=== PATIENT | female | born 1945 | race Caucasian/White ===

== ENCOUNTER → 2016-10-03 | Outpatient (CLI) | payer MEDICARE, BC ==
[2016-10-03 08:55] LABS: ALT 35 U/L (9-52); AST 23 U/L (14-36); Alkaline Phosphatase 89 U/L (38-126); Anion Gap 11 mmol/L; Blood Urea Nitrogen 15 mg/dL (7-17); Calcium 9.7 mg/dL (8.4-10.2); Carbon Dioxide 28 mmol/L (22-30); Chloride 101 mmol/L (98-107); Cholesterol 161 mg/dL (<200); Glucose 215 mg/dL (74-99); HDL Cholesterol 41 mg/dL (40-60); Non-African American GFR(MDRD) >60 (>60 ml/min/1.73 sqM); Sodium 140 mmol/L (137-145); Total Bilirubin 0.8 mg/dL (0.2-1.3); Total Protein 7.8 g/dL (6.3-8.2); Triglycerides 158 mg/dL (<150)
== END | disposition home or self-care (01) ==
LOC: LABWHC1 07:57
PROVIDERS: ATTEND Internal Medicine
DX: E78.2 Mixed hyperlipidemia (principal); E03.9 Hypothyroidism, unspecified; E11.9 Type 2 diabetes mellitus without complications; E55.9 Vitamin D deficiency, unspecified
CPT/HCPCS: 36415; 80053; 80061; 82306; 84443

== ENCOUNTER → 2017-02-28 | Outpatient (CLI) | payer MEDICARE, BC ==
[2017-02-28 10:17] LABS: Hemoglobin A1C 9.2 % (4.2-6.1)
== END | disposition home or self-care (01) ==
LOC: LABWHC1 08:47
PROVIDERS: ATTEND Internal Medicine
DX: E11.9 Type 2 diabetes mellitus without complications (principal); E03.9 Hypothyroidism, unspecified
CPT/HCPCS: 36415; 83036; 84443

== ENCOUNTER → 2017-06-18 | Outpatient (CLI) | payer MEDICARE, BC ==
[2017-06-18 09:38] LABS: Blood Urea Nitrogen 14 mg/dL (7-17); Non-African American GFR(MDRD) >60 (>60 ml/min/1.73 sqM)
[2017-06-18 13:04] LABS: Hemoglobin A1C 8.5 % (4.2-6.1)
== END | disposition home or self-care (01) ==
LOC: LABWHC1 08:38
PROVIDERS: ATTEND Internal Medicine
DX: E03.9 Hypothyroidism, unspecified (principal); E11.9 Type 2 diabetes mellitus without complications
CPT/HCPCS: 36415; 82565; 83036; 84443; 84520

== ENCOUNTER → 2017-10-11 | Outpatient (CLI) | payer MEDICARE, BC ==
[2017-10-11 18:30] LABS: Hemoglobin A1C 9.3 % (4.0-6.0)
== END | disposition home or self-care (01) ==
LOC: LABWHC1 09:46
PROVIDERS: ATTEND Internal Medicine
DX: E11.9 Type 2 diabetes mellitus without complications (principal)
CPT/HCPCS: 36415; 83036

== ENCOUNTER 2020-11-21 11:08 | Inpatient (IN) | payer MEDICARE, BC ==
[2020-11-21] MEDS ORDERED: SODIUM CHLORIDE 0.9% 1,000 ML IV STA (11:27)
[2020-11-21 11:55] LABS: Basophils # (A) 0.1 k/uL (0-0.2); Basophils % (A) 0 %; Eosinophils # (A) 0.1 k/uL (0-0.7); Eosinophils % (A) 0 %; HGB 7.9 gm/dL (11.4-16.0); Hypochromasia Marked; Lymphocytes % (A) 13 %; MCH 24.5 pg (25.0-35.0); MCHC 28.4 g/dL (31.0-37.0); MCV 86.4 fL (80.0-100.0); Mean Platelet Volume 7.5; Monocytes # (A) 0.3 k/uL (0-1.0); Monocytes % (A) 2 %; Neutrophils # (A) 13.2 k/uL (1.3-7.7); Neutrophils % (A) 84 %; Platelet Count 496 k/uL (150-450); RBC 3.24 m/uL (3.80-5.40); RDW 14.7 % (11.5-15.5); WBC 15.7 k/uL (3.8-10.6)
--- NOTE | 2020-11-21 12:03 | ED ---
General Adult HPI - General Chief complaint: GI Bleed Stated complaint: GI Bleed, vomiting Time Seen by Provider: 11/21/20 11:26 Source: family Mode of arrival: wheelchair Limitations: physical limitation - History of Present Illness Initial comments: Dictation was produced using [employer] dictation software. please excuse any grammatical, word or spelling errors. This patient was cared for during a federal and state declared state of emergency secondary to Covid 19 Chief Complaint: 75-year-old female presents with hematemesis and melanotic stool History of Present Illness: She 75-year-old female she presents today with acute hematemesis and melanotic stool. Patient is accompanied by daughter who states that she looked fine last night. Patient has diffuse abdominal pain. She has no history of GI bleed. This morning she had multiple episodes of hematemesis and melanotic stool. Daughter reports that patient looks pale. She does not take any anticoagulation drugs. She has past medical history of thyroid disease, dyslipidemia and diabetes. The ROS documented in this emergency department record has been reviewed and c onfirmed by me. Those systems with pertinent positive or negative responses have been documented in the HPI. All other systems are other negative and/or noncontributory. PHYSICAL EXAM: General Impression: Alert and oriented x3, not in acute distress, pale HEENT: Normocephalic atraumatic, extra-ocular movements intact, pupils equal and reactive to light bilaterally, mucous membranes moist. Cardiovascular: Tachycardic Chest: Able to complete full sentences, no retractions, no tachypnea Abdomen: abdomen soft, non-tender, non-distended, no organomegaly Musculoskeletal: Pulses present and equal in all extremities, no peripheral edema Motor: no focal deficits noted Neurological: CN II-XII grossly intact, no focal motor or sensory deficits noted Skin: Intact with no visualized rashes Psych: Normal affect and mood ED course: 75 presents with acute GI bleed. She does appear to be pale at the bedside. Vital signs upon arrival shows heart rate of 100, blood pressure 97/49. Laboratory evaluation obtained. Leukocytosis of 15.7 likely secondary to stress. Hemoglobin is 7.9 down from 13.4 in 2015. We do not have any more updated labs for better assessment of patient's baseline hemoglobin. Coag panel is negative. Metabolic panel shows bicarb of 7 with an anion gap of 27. Glucose 539. Concerning for DKA. Patient started on IV fluids and started on DKA protocol. Stool occult blood is positive. Protonix Patient will be admitted to the intensive care unit. Case was discussed with Dr. Lyon. Dr. Good was also notified who is willing to accept patients care for admission. EKG interpretation: Ventricular rate 83, normal sinus rhythm, CA interval 140, QRS 82, QTc 447. No CA prolongation, no QTC prolongation, no ST or T-wave changes noted. EKG compared to [default value] showing no changes. Overall, this EKG is unremarkable - Related Data Allergies Allergy/AdvReac Type Severity Reaction Status Date / Time No Known Allergies Allergy Verified 11/21/20 11:23 Review of Systems ROS Statement: Those systems with pertinent positive or pertinent negative responses have been documented in the HPI. ROS Other: All systems not noted in ROS Statement are negative. Past Medical History Past Medical History: Diabetes Mellitus, Hyperlipidemia, Thyroid Disorder History of Any Multi-Drug Resistant Organisms: None Reported Past Surgical History: Orthopedic Surgery Additional Past Surgical History / Comment(s): rt hand Smoking Status: Never smoker Past Alcohol Use History: None Reported Past Drug Use History: None Reported General Exam Limitations: physical limitation Course Vital Signs 11/21/20 11/21/20 11:19 12:00 Temperature 96.8 F L Pulse Rate 100 90 Respiratory 16 18 Rate Blood Pressure 97/49 91/50 O2 Sat by Pulse 96 95 Oximetry Medical Decision Making - Lab Data Result diagrams: 11/21/20 11:42 11/21/20 11:42 Lab Results 11/21/20 11/21/20 11/21/20 Range/Units 11:42 11:42 11:42 WBC 15.7 H (3.8-10.6) k/uL RBC 3.24 L (3.80-5.40) m/uL Hgb 7.9 L (11.4-16.0) gm/dL Hct 28.0 L (34.0-46.0) % MCV 86.4 (80.0-100.0) fL MCH 24.5 L (25.0-35.0) pg MCHC 28.4 L (31.0-37.0) g/dL RDW 14.7 (11.5-15.5) % Plt Count 496 H (150-450) k/uL MPV 7.5 Neutrophils % 84 % Lymphocytes % 13 % Monocytes % 2 % Eosinophils % 0 % Basophils % 0 % Neutrophils # 13.2 H (1.3-7.7) k/uL Lymphocytes # 2.0 (1.0-4.8) k/uL Monocytes # 0.3 (0-1.0) k/uL Eosinophils # 0.1 (0-0.7) k/uL Basophils # 0.1 (0-0.2) k/uL Hypochromasia Marked PT 11.6 (9.0-12.0) sec INR 1.1 (<1.2) APTT 22.1 (22.0-30.0) sec Sodium 138 (137-145) mmol/L Potassium 5.3 H (3.5-5.1) mmol/L Chloride 104 (98-107) mmol/L Carbon Dioxide 7 L* (22-30) mmol/L Anion Gap 27 mmol/L BUN 36 H (7-17) mg/dL Creatinine 1.23 H (0.52-1.04) mg/dL Est GFR (CKD-EPI)AfAm 49 (>60 ml/min/1.73 sqM) Est GFR (CKD-EPI)NonAf 43 (>60 ml/min/1.73 sqM) Glucose 539 H* (74-99) mg/dL Calcium 9.5 (8.4-10.2) mg/dL Total Bilirubin 0.4 (0.2-1.3) mg/dL AST 27 (14-36) U/L ALT 28 (4-34) U/L Alkaline Phosphatase 60 (38-126) U/L Troponin I (0.000-0.034) ng/mL Total Protein 6.2 L (6.3-8.2) g/dL Albumin 3.4 L (3.5-5.0) g/dL Stool Occult Blood (Negative) Blood Type Blood Type Recheck Bld Type Recheck Status Antibody Screen Spec Expiration Date 11/21/20 11/21/20 11/21/20 Range/Units 11:42 11:42 12:00 WBC (3.8-10.6) k/uL RBC (3.80-5.40) m/uL Hgb (11.4-16.0) gm/dL Hct (34.0-46.0) % MCV (80.0-100.0) fL MCH (25.0-35.0) pg MCHC (31.0-37.0) g/dL RDW (11.5-15.5) % Plt Count (150-450) k/uL MPV Neutrophils % % Lymphocytes % % Monocytes % % Eosinophils % % Basophils % % Neutrophils # (1.3-7.7) k/uL Lymphocytes # (1.0-4.8) k/uL Monocytes # (0-1.0) k/uL Eosinophils # (0-0.7) k/uL Basophils # (0-0.2) k/uL Hypochromasia PT (9.0-12.0) sec INR (<1.2) APTT (22.0-30.0) sec Sodium (137-145) mmol/L Potassium (3.5-5.1) mmol/L Chloride (98-107) mmol/L Carbon Dioxide (22-30) mmol/L Anion Gap mmol/L BUN (7-17) mg/dL Creatinine (0.52-1.04) mg/dL Est GFR (CKD-EPI)AfAm (>60 ml/min/1.73 sqM) Est GFR (CKD-EPI)NonAf (>60 ml/min/1.73 sqM) Glucose (74-99) mg/dL Calcium (8.4-10.2) mg/dL Total Bilirubin (0.2-1.3) mg/dL AST (14-36) U/L ALT (4-34) U/L Alkaline Phosphatase (38-126) U/L Troponin I 0.021 (0.000-0.034) ng/mL Total Protein (6.3-8.2) g/dL Albumin (3.5-5.0) g/dL Stool Occult Blood Positive H (Negative) Blood Type O Positive Blood Type Recheck No Previous Record Bld Type Recheck Status CABO Indicated Antibody Screen NEGATIVE Spec Expiration Date 11/24/2020 - 2341 Critical Care Time Critical Care Time: Yes Total Critical Care Time: 33 Disposition Clinical Impression: DKA (diabetic ketoacidoses), Acute blood loss anemia, GI bleed Disposition: ADMITTED IP TO THIS [facility] Condition: Critical Referrals: Cristofer Vanegas MD [Primary Care Provider] - 1-2 days Decision Time: 12:57
[2020-11-21 12:07] LABS: Albumin 3.4 g/dL (3.5-5.0); Calcium 9.5 mg/dL (8.4-10.2); Potassium 5.3 mmol/L (3.5-5.1); Total Bilirubin 0.4 mg/dL (0.2-1.3); Total Protein 6.2 g/dL (6.3-8.2)
[2020-11-21 12:15] LABS: INR 1.1 (<1.2); Partial Thromboplastin Time 22.1 sec (22.0-30.0); Prothrombin Time 11.6 sec (9.0-12.0)
[2020-11-21] MEDS ORDERED: Potassium Replacement Protocol 1 EACH MISC MISCELLANE PRN (12:22)
[2020-11-21] MEDS ORDERED: Magnesium Replacement Protocol 1 EACH MISC MISCELLANE PRN (12:22)
[2020-11-21] MEDS ORDERED: INSULIN REGULAR BOLUS (FROM DRIP BAG) IV ONE (12:22)
[2020-11-21] MEDS ORDERED: PANTOPRAZOLE 40 MG/10 ML VIAL IVP ONE (12:46)
[2020-11-21] MEDS ORDERED: ACETAMINOPHEN TAB 325 MG TAB PO PRN (12:54)
[2020-11-21] MEDS ORDERED: NALOXONE 0.4 MG/ML 1 ML VIAL IV PRN (12:54)
[2020-11-21] MEDS ORDERED: INSULIN REGULAR 100 UNIT in SODIUM CHLORIDE 0.9% 100 ML IV SCH (13:00)
--- NOTE | 2020-11-21 14:00 | CT ---
EXAMINATION TYPE: CT abdomen pelvis w con DATE OF EXAM: 11/21/2020 COMPARISON: None HISTORY: Abd pain, GI Bleed CT DLP: 1673.6 mGycm Automated exposure control for dose reduction was used. TECHNIQUE: Helical acquisition of images from the lung bases through the pelvis have been completed. CONTRAST: Performed without Oral Contrast and with IV Contrast, patient injected with 80 mL of Isovue 300. FINDINGS: There is motion on exam, artifact LUNG BASES: No significant abnormality is appreciated. AORTA: No significant abnormality is appreciated. LIVER/GB: Low-attenuation in the liver is likely due to hepatic steatosis, liver is enlarged, gallbla dder not well seen, there is artifact present, there is likely a gallstone, gallbladder likely contra cted. PANCREAS: No significant abnormality is seen. SPLEEN: No significant abnormality is seen. ADRENALS: No significant abnormality is seen. KIDNEYS: Small cortical cysts associated with the kidneys, the lower pole the right kidney however th ere is a mixed attenuation focus measuring 2.4 cm seen better on the delayed images, axial image #37 REPRODUCTIVE ORGANS: Not seen BOWEL: No significant abnormality is seen. FREE AIR: No Free Air visible. ASCITES: None visible. PELVIC ADENOPATHY: None visualized. RETROPERITONEAL ADENOPATHY: No Retroperitoneal Adenopathy visible. URINARY BLADDER: No significant abnormality is seen. OSSEOUS STRUCTURES: No significant abnormality is seen. IMPRESSION: CHOLELITHIASIS, HEPATOMEGALY, HEPATIC STEATOSIS. DIFFICULT TO EXCLUDE SMALL RENAL CELL CARCINOMA ON T HE RIGHT AT THE LOWER POLE LEVEL
[2020-11-21 14:14] LABS: Glucose,Whole Blood 372 mg/dL (75-99)
[2020-11-21 14:29] LABS: Glucose,Whole Blood 353 mg/dL (75-99)
[2020-11-21] MEDS ORDERED: SODIUM CHLORIDE 0.9% 1,000 ML IV SCH (15:00)
[2020-11-21 15:11] LABS: Glucose,Whole Blood 351 mg/dL (75-99)
[2020-11-21 16:04] LABS: Glucose,Whole Blood 309 mg/dL (75-99)
[2020-11-21 17:00] LABS: Basophils % (A) 0 %; Eosinophils % (A) 0 %; HCT 21.6 % (34.0-46.0); Hypochromasia Marked; Lymphocytes # (A) 1.1 k/uL (1.0-4.8); Lymphocytes % (A) 8 %; MCH 25.1 pg (25.0-35.0); MCHC 31.3 g/dL (31.0-37.0); Mean Platelet Volume 7.6; Monocytes # (A) 0.8 k/uL (0-1.0); Monocytes % (A) 5 %; Neutrophils # (A) 12.6 k/uL (1.3-7.7); Neutrophils % (A) 87 %; Platelet Count 375 k/uL (150-450); RDW 14.8 % (11.5-15.5); WBC 14.6 k/uL (3.8-10.6)
[2020-11-21 17:04] LABS: Glucose,Whole Blood 200 mg/dL (75-99)
[2020-11-21] MEDS ORDERED: LACTATED RINGERS 1,000 ML IV SCH (17:08)
[2020-11-21 17:09] LABS: Potassium 4.5 mmol/L (3.5-5.1)
[2020-11-21 17:12] LABS: HGB 6.8 gm/dL (11.4-16.0)
[2020-11-21 17:13] LABS: MCV 80.1 fL (80.0-100.0)
[2020-11-21] MEDS ORDERED: D5-0.45% NACL WITH KCL 20MEQ/L 1,000 ML IV SCH ×2 (17:15→22:58)
--- NOTE | 2020-11-21 17:47 | P.CNPUL ---
History of Present Illness Consult date: 11/21/20 Requesting physician: Sarah Good Reason for consult: other (Upper GI bleeding) Chief complaint: Vomiting blood History of present illness: This is a 75-year-old female, known history of hypertension, type 2 diabetes, dyslipidemia, hypothyroidism, patient presented to the ER today with 1 day hi story of hematemesis, and melanotic stool. Patient also had some vague abdominal pain. Associated with vomiting blood. No previous history of GI bleeding. No previous history of gastric ulcer disease. No previous history of esophagitis. No previous history of alcohol related liver disease. Patient is not on any anticoagulation drugs but she does take baby aspirin daily and she takes Aleve few times per week for symptoms of aches and pains. At any rate patient was evaluated in the ER, her hemoglobin was noted to be 6.8, patient was admitted and I was asked to see her on consultation. GI was also consulted. In the meantime patient was placed on Protonix, and will continue to monitor her hemoglobin and hematocrit serially. Patient was also noted to have elevated blood sugar of 309, and she had mild metabolic acidosis with bicarb of 18 but normal anion gap. Patient was also noted to have a BUN of 48 creatinine of 0.95 Review of Systems Constitutional: Negative HEENT: Negative Pulmonary: Negative Cardiac: Negative GI: As noted in HPI mostly vomiting blood and noticing some black stools with diarrhea. Minimal vague abdominal pain. Genitourinary: Negative Musculoskeletal: Negative Hematologic: As noted in HPI. Endocrine: Negative except for history of diabetes and hypothyroidism both are under control. Neurologic: Negative Psychiatric: Negative Skin: Negative Past Medical History Past Medical History: Diabetes Mellitus, GERD/Reflux, Hyperlipidemia, Osteoarthritis (OA), Thyroid Disorder Additional Past Medical History / Comment(s): NIDDM type II, hypothyroid, occasional R knee pain, hypothyroid, urinary leakage. History of Any Multi-Drug Resistant Organisms: None Reported Past Surgical History: Breast Surgery, Hysterectomy, Orthopedic Surgery, Tubal Ligation Additional Past Surgical History / Comment(s): EGD, uvulectomy for benign mass, R breast benign bx, D&C, bilateral cataract removals, R middle finger surgery. Past Anesthesia/Blood Transfusion Reactions: No Reported Reaction Smoking Status: Never smoker - Past Family History Father Family Medical History: Cancer Additional Family Medical History / Comment(s): Pt cannot recall type of cancer. Mother Family Medical History: Diabetes Mellitus Medications and Allergies Home Medications Medication Instructions Recorded Confirmed Type Aspirin EC [Ecotrin Low Dose] 81 mg PO DAILY 11/21/20 11/21/20 History Atorvastatin [Lipitor] 10 mg PO DAILY 11/21/20 11/21/20 History Cholecalciferol [Vitamin D3 (25 25 mcg PO DAILY 11/21/20 11/21/20 History Mcg = 1000 Iu)] Levothyroxine Sodium [Synthroid] 200 mcg PO DAILY 11/21/20 11/21/20 History glyBURIDE/METFORMIN HCL 1 tab PO HS 11/21/20 11/21/20 History [glyBURIDE/METFORMIN HCL 5-500 mg] glyBURIDE/METFORMIN HCL 2 tab PO DAILY 11/21/20 11/21/20 History [glyBURIDE/METFORMIN HCL 5-500 mg] Allergies Allergy/AdvReac Type Severity Reaction Status Date / Time No Known Allergies Allergy Verified 11/21/20 13:34 Physical Exam Vitals: Vital Signs Temp Pulse Resp BP Pulse Ox 11/21/20 17:00 92 18 106/52 98 11/21/20 16:00 86 13 99/51 100 11/21/20 15:00 98.7 F 92 25 H 108/70 98 11/21/20 14:00 91 19 121/99 100 11/21/20 13:45 96 18 121/89 100 11/21/20 13:30 95 18 117/94 100 11/21/20 13:00 90 18 94/49 98 11/21/20 12:00 96.8 F L 90 18 91/50 95 11/21/20 11:19 100 16 97/49 96 Intake and Output 11/21/20 11/21/20 11/21/20 06:59 14:59 22:59 Intake Total 400 Output Total 205 Balance 195 Intake: IV 400 Sodium Chloride 0.9% 1, 400 000 ml @ 200 mls/hr IV . Q5H [facility] Rx#:[id number] Output: Urine 205 Other: Voiding Method Indwelling Catheter Weight 90.718 kg Physical Exam: Revealed 75-year-old female in no distress. Head: Atraumatic, normocephalic. HEENT:[Neck is supple.] [No neck masses.] [No thyromegaly.] [No JVD.] Chest: [Clear throughout, no crackles, no rhonchi, no wheezes.] Cardiac Exam: [Normal S1 and S2, no S3 gallop, no murmur.] Abdomen: [Soft, nontender, no megaly, no rebound, no guarding, normal bowel sounds.] Extremities: [No clubbing, no edema, no cyanosis.] Neurological Exam: [No focal neurologic deficit. Alert and oriented 3. Psychiatric: Normal mood affect and normal mental status examination. Skin: No rashes.] Results - Laboratory Findings CBC and BMP: 11/21/20 16:41 11/21/20 16:41 PT/INR, D-dimer PT 11.6 sec (9.0-12.0) 11/21/20 11:42 INR 1.1 (<1.2) 11/21/20 11:42 Abnormal lab findings: Abnormal Labs 11/21/20 11/21/20 11/21/20 11:42 11:42 12:00 WBC 15.7 H RBC 3.24 L Hgb 7.9 L Hct 28.0 L MCH 24.5 L MCHC 28.4 L Plt Count 496 H Neutrophils # 13.2 H Potassium 5.3 H Chloride Carbon Dioxide 7 L* BUN 36 H Creatinine 1.23 H Glucose 539 H* POC Glucose (mg/dL) Total Protein 6.2 L Albumin 3.4 L Stool Occult Blood Positive H 11/21/20 11/21/20 11/21/20 14:12 14:28 15:10 WBC RBC Hgb Hct MCH MCHC Plt Count Neutrophils # Potassium Chloride Carbon Dioxide BUN Creatinine Glucose POC Glucose (mg/dL) 372 H 353 H 351 H Total Protein Albumin Stool Occult Blood 11/21/20 11/21/20 11/21/20 16:02 16:41 16:41 WBC 14.6 H RBC 2.70 L Hgb 6.8 L* Hct 21.6 L MCH MCHC Plt Count Neutrophils # 12.6 H Potassium Chloride 111 H Carbon Dioxide 18 L BUN 48 H Creatinine Glucose 178 H POC Glucose (mg/dL) 309 H Total Protein Albumin Stool Occult Blood 11/21/20 17:02 WBC RBC Hgb Hct MCH MCHC Plt Count Neutrophils # Potassium Chloride Carbon Dioxide BUN Creatinine Glucose POC Glucose (mg/dL) 200 H Total Protein Albumin Stool Occult Blood - Diagnostic Findings Additional studies: CT of the abdomen and pelvis showed cholelithiasis, hepatomegaly, hepatic steatosis, and questionable lesion on the right kidney lower pole, radiologist raised the possibility of renal cell carcinoma Assessment and Plan Assessment: Impression: Acute upper GI bleeding most likely secondary to erosive gastritis or peptic ulcer disease. Acute blood loss anemia secondary to GI bleeding. Suspect Acute diabetic ketoacidosis. With significant anion gap on presentation. Significantly improved with hydration. Acute metabolic acidosis secondary to diabetic ketoacidosis History of benign essential hypertension. Type 2 diabetes. History of hypothyroidism. Abnormal CT of the abdomen and pelvis suggestive of possible renal cell carcinoma, needs to be evaluated on outpatient basis by urology. Recommendation: Continue IV fluids in the form of 0.9 normal saline. Continue insulin. Transfuse for hemoglobin below 7 with 1 unit of packed RBCs. GI to evaluate the patient and possibly consider EGD. Protonix empirically 40 mg IV push twice a day. Serial monitoring of hemoglobin and hematocrit every 4 hours. Avoid any nonsteroidal anti-inflammatory drugs. Avoid any anticoagulants. Will monitor in the ICU for the next 24 hours, and we'll reassess in a.m. We'll continue to follow. Time with Patient: Greater than 30
[2020-11-21 18:11] LABS: Glucose,Whole Blood 160 mg/dL (75-99)
[2020-11-21 19:07] LABS: Glucose,Whole Blood 121 mg/dL (75-99)
--- NOTE | 2020-11-21 19:32 | P.HPIM ---
History of Present Illness H&P Date: 11/21/20 Cheyenne Crump, is a 75-year-old female who presented to [facility] emergency room with a chief complaint of vomiting up coffee-ground material and having abdominal pain. She was evaluated in the emergency room her vital examination on presentation revealed a temperature of 96.8 pulse 90 respiration 18 blood pressure 91/50 pulse ox 95% on 2 L nasal cannula white blood count on presentation 15.7 hemoglobin 7.9 lately it count 496 sodium 138 potassium 5.3 CO2 was 7 BUN 36 creatinine 1.23 glucose level 539 stools Hemoccult was positive patient was admitted to intensive care unit computed tomography scan of the abdomen and pelvis was done and revealed evidence of cholelithiasis, hepatomegaly, and possible right small renal lesion on the lower lobe that might indicate renal cell carcinoma per Radiology. Patient was admitted to intensive care unit, critical care consultation and gastroenterology consultation were requested. Past medical history is significant for diabetes mellitus, [id number], hyperlipidemia, hypothyroidism, osteoarthritis, gastroesophageal reflux disease, patient denies any previous history of gastric ulcer or GI bleed in the past. No history of liver cirrhosis. On review of systems patient was seen in the ICU at this time she had signif icant improvement she received IV fluid, there is no fever or chills no headache or dizziness no chest pain no shortness of breath no cough no nausea or vomiting no abdominal pain no diarrhea no burning with urination no frequency or urgency and no hematuria. Past Medical History Past Medical History: Diabetes Mellitus, GERD/Reflux, Hyperlipidemia, Osteoarth ritis (OA), Thyroid Disorder Additional Past Medical History / Comment(s): NIDDM type II, hypothyroid, occasional R knee pain, hypothyroid, urinary leakage. History of Any Multi-Drug Resistant Organisms: None Reported Past Surgical History: Breast Surgery, Hysterectomy, Orthopedic Surgery, Tubal Ligation Additional Past Surgical History / Comment(s): EGD, uvulectomy for benign mass, R breast benign bx, D&C, bilateral cataract removals, R middle finger surgery. Past Anesthesia/Blood Transfusion Reactions: No Reported Reaction Smoking Status: Never smoker - Past Family History Father Family Medical History: Cancer Additional Family Medical History / Comment(s): Pt cannot recall type of cancer. Mother Family Medical History: Diabetes Mellitus Medications and Allergies Home Medications Medication Instructions Recorded Confirmed Type Aspirin EC [Ecotrin Low Dose] 81 mg PO DAILY 11/21/20 11/21/20 History Atorvastatin [Lipitor] 10 mg PO DAILY 11/21/20 11/21/20 History Cholecalciferol [Vitamin D3 (25 25 mcg PO DAILY 11/21/20 11/21/20 History Mcg = 1000 Iu)] Levothyroxine Sodium [Synthroid] 200 mcg PO DAILY 11/21/20 11/21/20 History glyBURIDE/METFORMIN HCL 1 tab PO HS 11/21/20 11/21/20 History [glyBURIDE/METFORMIN HCL 5-500 mg] glyBURIDE/METFORMIN HCL 2 tab PO DAILY 11/21/20 11/21/20 History [glyBURIDE/METFORMIN HCL 5-500 mg] Allergies Allergy/AdvReac Type Severity Reaction Status Date / Time No Known Allergies Allergy Verified 11/21/20 13:34 Physical Exam Vitals: Vital Signs Temp Pulse Resp BP Pulse Ox 11/21/20 19:00 90 17 103/53 97 11/21/20 18:55 98.2 F 85 14 98/55 99 11/21/20 18:45 99.7 F H 88 16 111/55 98 11/21/20 18:00 90 18 110/48 100 11/21/20 17:00 92 18 106/52 98 11/21/20 16:00 86 13 99/51 100 11/21/20 15:00 98.7 F 92 25 H 108/70 98 11/21/20 14:00 91 19 121/99 100 11/21/20 13:45 96 18 121/89 100 11/21/20 13:30 95 18 117/94 100 11/21/20 13:00 90 18 94/49 98 11/21/20 12:00 96.8 F L 90 18 91/50 95 11/21/20 11:19 100 16 97/49 96 Intake and Output 11/21/20 11/21/20 11/21/20 06:59 14:59 22:59 Intake Total 757.88 Output Total 325 Balance 432.88 Intake: IV 700 D5-0.45% NaCl with KCl 300 20Meq/l 1,000 ml @ 150 mls/hr IV .Q6H40M [facility] Rx# :[id number] Sodium Chloride 0.9% 1, 400 000 ml @ 200 mls/hr IV . Q5H [facility] Rx#:[id number] Intake, IV Titration 57.88 Amount Insulin Regular 100 unit 57.88 In Sodium Chloride 0.9% 100 ml @ 0.1 UNITS/KG/HR 9.163 mls/hr IV .Q11H2M [facility] Rx#:[id number] Blood Product 0 Rc As-1 Unit 0 [id number] Output: Urine 325 Other: Voiding Method Indwelling Catheter Weight 90.718 kg In general patient is alert and oriented 3 in no apparent distress HEENT head normocephalic and atraumatic Neck is supple no JVD no goiter no lymphadenopathy Chest exam reveals a few scattered crackles no wheezing Cardiac exam reveals regular heart sounds S1 and S2 no gallops no murmurs Abdomen is soft nontender no organomegaly with normal bowel sounds Extremity exam reveals no edema no cyanosis or clubbing Neurological examination reveals no gross focal deficit Results CBC & Chem 7: 11/21/20 16:41 11/21/20 16:41 Labs: Abnormal Lab Results - Last 24 Hours (Table) 11/21/20 11/21/20 11/21/20 Range/Units 11:42 11:42 11:42 WBC 15.7 H (3.8-10.6) k/uL RBC 3.24 L (3.80-5.40) m/uL Hgb 7.9 L (11.4-16.0) gm/dL Hct 28.0 L (34.0-46.0) % MCH 24.5 L (25.0-35.0) pg MCHC 28.4 L (31.0-37.0) g/dL Plt Count 496 H (150-450) k/uL Neutrophils # 13.2 H (1.3-7.7) k/uL Potassium 5.3 H (3.5-5.1) mmol/L Chloride (98-107) mmol/L Carbon Dioxide 7 L* (22-30) mmol/L BUN 36 H (7-17) mg/dL Creatinine 1.23 H (0.52-1.04) mg/dL Glucose 539 H* (74-99) mg/dL POC Glucose (mg/dL) (75-99) mg/dL Total Protein 6.2 L (6.3-8.2) g/dL Albumin 3.4 L (3.5-5.0) g/dL Stool Occult Blood (Negative) Crossmatch See Detail 11/21/20 11/21/20 11/21/20 Range/Units 12:00 14:12 14:28 WBC (3.8-10.6) k/uL RBC (3.80-5.40) m/uL Hgb (11.4-16.0) gm/dL Hct (34.0-46.0) % MCH (25.0-35.0) pg MCHC (31.0-37.0) g/dL Plt Count (150-450) k/uL Neutrophils # (1.3-7.7) k/uL Potassium (3.5-5.1) mmol/L Chloride (98-107) mmol/L Carbon Dioxide (22-30) mmol/L BUN (7-17) mg/dL Creatinine (0.52-1.04) mg/dL Glucose (74-99) mg/dL POC Glucose (mg/dL) 372 H 353 H (75-99) mg/dL Total Protein (6.3-8.2) g/dL Albumin (3.5-5.0) g/dL Stool Occult Blood Positive H (Negative) Crossmatch 11/21/20 11/21/20 11/21/20 Range/Units 15:10 16:02 16:41 WBC 14.6 H (3.8-10.6) k/uL RBC 2.70 L (3.80-5.40) m/uL Hgb 6.8 L* (11.4-16.0) gm/dL Hct 21.6 L (34.0-46.0) % MCH (25.0-35.0) pg MCHC (31.0-37.0) g/dL Plt Count (150-450) k/uL Neutrophils # 12.6 H (1.3-7.7) k/uL Potassium (3.5-5.1) mmol/L Chloride (98-107) mmol/L Carbon Dioxide (22-30) mmol/L BUN (7-17) mg/dL Creatinine (0.52-1.04) mg/dL Glucose (74-99) mg/dL POC Glucose (mg/dL) 351 H 309 H (75-99) mg/dL Total Protein (6.3-8.2) g/dL Albumin (3.5-5.0) g/dL Stool Occult Blood (Negative) Crossmatch 11/21/20 11/21/20 11/21/20 Range/Units 16:41 17:02 18:10 WBC (3.8-10.6) k/uL RBC (3.80-5.40) m/uL Hgb (11.4-16.0) gm/dL Hct (34.0-46.0) % MCH (25.0-35.0) pg MCHC (31.0-37.0) g/dL Plt Count (150-450) k/uL Neutrophils # (1.3-7.7) k/uL Potassium (3.5-5.1) mmol/L Chloride 111 H (98-107) mmol/L Carbon Dioxide 18 L (22-30) mmol/L BUN 48 H (7-17) mg/dL Creatinine (0.52-1.04) mg/dL Glucose 178 H (74-99) mg/dL POC Glucose (mg/dL) 200 H 160 H (75-99) mg/dL Total Protein (6.3-8.2) g/dL Albumin (3.5-5.0) g/dL Stool Occult Blood (Negative) Crossmatch 11/21/20 Range/Units 19:05 WBC (3.8-10.6) k/uL RBC (3.80-5.40) m/uL Hgb (11.4-16.0) gm/dL Hct (34.0-46.0) % MCH (25.0-35.0) pg MCHC (31.0-37.0) g/dL Plt Count (150-450) k/uL Neutrophils # (1.3-7.7) k/uL Potassium (3.5-5.1) mmol/L Chloride (98-107) mmol/L Carbon Dioxide (22-30) mmol/L BUN (7-17) mg/dL Creatinine (0.52-1.04) mg/dL Glucose (74-99) mg/dL POC Glucose (mg/dL) 121 H (75-99) mg/dL Total Protein (6.3-8.2) g/dL Albumin (3.5-5.0) g/dL Stool Occult Blood (Negative) Crossmatch Thrombosis Risk Factor Assmnt - Choose All That Apply Any of the Below Risk Factors Present?: Yes Each Factor Represents 1 point: Obesity (BMI >25) Other Risk Factors: Yes Each Risk Factor Represents 3 Points: Age 75 years or older Other congenital or acquired thrombophilia - If yes, enter type in comment: No Thrombosis Risk Factor Assessment Total Risk Factor Score: 4 Thrombosis Risk Factor Assessment Level: Moderate Risk Assessment and Plan Plan: Acute metabolic acidosis Possible acute ketoacidosis, although patient has a known history of diabetes mellitus type 2, will check ketones, will check hemoglobin A1c Underlying history of hypertension Underlying history of hyperlipidemia Underlying history of hypothyroidism Right kidney lesion in the lower pole possibly representing renal cell carcinoma per radiology patient need to be referred to urology as outpatient for further investigation At this time patient is admitted to ICU she is maintained on IV fluid and IV insulin Gastroenterology consultation was requested Critical care consultation is requested Patient is maintained on IV Protonix Will follow closely
[2020-11-21 19:46] LABS: % Iron Saturation 27.81 (12.00-45.00)
[2020-11-21 19:54] LABS: Glucose,Whole Blood 87 mg/dL (75-99)
[2020-11-21 19:56] LABS: Folate, Serum 8.5 ng/mL
[2020-11-21 20:13] LABS: Ferritin 11.3 ng/mL (10.0-291.0)
[2020-11-21] MEDS: PANTOPRAZOLE 40 MG/10 ML VIAL IVP SCH (20:37)
[2020-11-21 20:56] LABS: Glucose,Whole Blood 100 mg/dL (75-99)
[2020-11-21] MEDS ORDERED: INSULIN NPH 300 UNIT/3 ML VIAL SQ ONE (21:42)
[2020-11-22 02:25] LABS: Phosphorus 3.5 mg/dL (2.5-4.5); Potassium 4.6 mmol/L (3.5-5.1)
[2020-11-22 03:58] LABS: HCT 25.4 % (34.0-46.0); Hypochromasia Slight; MCH 26.9 pg (25.0-35.0); MCHC 32.7 g/dL (31.0-37.0); MCV 82.1 fL (80.0-100.0); Mean Platelet Volume 7.6; Platelet Count 288 k/uL (150-450); Poikilocytosis Slight; RDW 15.7 % (11.5-15.5); WBC 12.5 k/uL (3.8-10.6)
[2020-11-22 04:04] LABS: HGB 8.3 gm/dL (11.4-16.0)
[2020-11-22 04:18] LABS: Calcium 8.5 mg/dL (8.4-10.2); Potassium 4.5 mmol/L (3.5-5.1)
[2020-11-22 06:10] LABS: Glucose,Whole Blood 160 mg/dL (75-99)
[2020-11-22] MEDS: INSULIN ASPART (NovoLOG) 100 UNIT/ML VIAL SQ SCH ×4 (06:38→19:48)
[2020-11-22] MEDS ORDERED: INSULIN ASPART (NovoLOG) 100 UNIT/ML VIAL SQ SCH (07:30)
[2020-11-22] MEDS: PANTOPRAZOLE 40 MG/10 ML VIAL IVP SCH ×2 (08:00→19:49)
[2020-11-22 10:51] VITALS: BMI 37.3
[2020-11-22 12:02] LABS: Appearance,Urine Clear (Clear); Bilirubin,Urine Negative (Negative); Blood,Urine Negative (Negative); Color,Urine Light Yellow; Glucose,Urine (UA) 3+ (Negative); Ketones,Urine Negative (Negative); Leukocyte Esterase,Urine Negative (Negative); Nitrite,Urine Negative (Negative); PH, Urine 5.5 (5.0-8.0); Protein,Urine Negative (Negative); Specific Gravity,Urine 1.014 (1.001-1.035); Urobilinogen,Urine <2.0 mg/dL (<2.0)
[2020-11-22 12:05] LABS: Glucose,Whole Blood 190 mg/dL (75-99)
[2020-11-22] MEDS ORDERED: PROPOFOL 10 MG/ML 20 ML VIAL IV ONE (12:39)
[2020-11-22] MEDS ORDERED: LIDOCAINE 1% INJ 10MG/ML (20 ML MDV) ONE (12:39)
[2020-11-22] MEDS ORDERED: IV FLUID CONTINUATION 1,000 ML IV ONE (12:43)
--- NOTE | 2020-11-22 13:08 | P.CONS ---
History of Present Illness - Reason for Consult Consult date: 11/21/20 GI bleed Requesting physician: Cristofer Vanegas - Chief Complaint GI bleed - History of Present Illness 75-year-old female with multiple medical comorbidities including dyslipidemia, diabetes mellitus, and thyroid disease who presented to the hospital with compl aints of coffee-ground emesis and dark colored bowel movements. The patient reports symptoms of dark coffee-ground emesis. She also reports passing dark clots per rectum 2. Patient takes Aleve daily at home. She previously had an EGD in 2007 after uvula surgery. No prior colonoscopy. She denies any blood thinner use. Hemoglobin on presentation 7.9 with platelet count 496,000 and a WBC of 15.7. Stool testing was positive for occult blood. Computed tomography scan of the abdomen significant for hepatomegaly, cholelithiasis and possible renal lesion. Patient denies any prior history of peptic ulcer disease. No abdominal pain reported. Review of Systems REVIEW OF SYSTEMS: CONSTITUTIONAL: Denies any fevers, chills, weight change or fatigue. CARDIOVASCULAR: Denies any chest pain, palpitations high or low blood pressures RESPIRATORY: Denies any shortness of breath, hemoptysis or cough. GENITOURINARY: No dysuria or hematuria. MUSCULOSKELETAL: No weakness reported. SKIN: Denies any new rashes or lesions, jaundice or pallor. PSYCHIATRIC: Denies any depression or anxiety. NEUROLOGY: Denies headache, denies any new focal deficits. EARS/NOSE/THROAT: No recent hearing change but patient is hard of hearing a baseline no recent congestion, nasal discharge or sore throat. EYES: No pain in eyes, discharge or change in vision. GASTROINTESTINAL: As per HPI. Past Medical History Past Medical History: Diabetes Mellitus, Hyperlipidemia, Thyroid Disorder History of Any Multi-Drug Resistant Organisms: None Reported Past Surgical History: Orthopedic Surgery Additional Past Surgical History / Comment(s): rt hand Smoking Status: Never smoker Past Alcohol Use History: None Reported Past Drug Use History: None Reported - Past Family History Father Family Medical History: Cancer Additional Family Medical History / Comment(s): Pt cannot recall type of cancer. Mother Family Medical History: Diabetes Mellitus Medications and Allergies Home Medications Medication Instructions Recorded Confirmed Type Aspirin EC [Ecotrin Low Dose] 81 mg PO DAILY 11/21/20 11/21/20 History Atorvastatin [Lipitor] 10 mg PO DAILY 11/21/20 11/21/20 History Cholecalciferol [Vitamin D3 (25 25 mcg PO DAILY 11/21/20 11/21/20 History Mcg = 1000 Iu)] Levothyroxine Sodium [Synthroid] 200 mcg PO DAILY 11/21/20 11/21/20 History glyBURIDE/METFORMIN HCL 1 tab PO HS 11/21/20 11/21/20 History [glyBURIDE/METFORMIN HCL 5-500 mg] glyBURIDE/METFORMIN HCL 2 tab PO DAILY 11/21/20 11/21/20 History [glyBURIDE/METFORMIN HCL 5-500 mg] Allergies Allergy/AdvReac Type Severity Reaction Status Date / Time No Known Allergies Allergy Verified 11/21/20 13:34 Physical Exam Vitals: Vital Signs Temp Pulse Resp BP Pulse Ox 11/21/20 13:45 96 18 121/89 100 11/21/20 13:30 95 18 117/94 100 11/21/20 13:00 90 18 94/49 98 11/21/20 12:00 96.8 F L 90 18 91/50 95 11/21/20 11:19 100 16 97/49 96 Intake and Output 11/20/20 11/21/20 11/21/20 22:59 06:59 14:59 Other: Weight 90.718 kg On physical examination, patient appears comfortable in no apparent distress. HEAD: Normocephalic, atraumatic. EYES: No scleral icterus. No conjunctival injection. MOUTH: No lesions, tongue midline. NECK: Trachea midline, no gross abnormalities. CHEST: Decreased air entry in all lung gore. HEART: S1-S2 appreciated. ABDOMEN: Soft, obese and nontender to palpation. Bowel sounds are positive. No organomegaly. No guarding or rigidity. EXTREMITIES: No pedal edema. SKIN: No rashes, no jaundice. NEUROLOGIC: Alert and oriented x3. No focal deficits. Results CBC & Chem 7: 11/22/20 03:15 11/22/20 03:15 Labs: Abnormal Lab Results - Last 24 Hours (Table) 11/21/20 11/21/20 11/21/20 Range/Units 11:42 11:42 12:00 WBC 15.7 H (3.8-10.6) k/uL RBC 3.24 L (3.80-5.40) m/uL Hgb 7.9 L (11.4-16.0) gm/dL Hct 28.0 L (34.0-46.0) % MCH 24.5 L (25.0-35.0) pg MCHC 28.4 L (31.0-37.0) g/dL Plt Count 496 H (150-450) k/uL Neutrophils # 13.2 H (1.3-7.7) k/uL Potassium 5.3 H (3.5-5.1) mmol/L Carbon Dioxide 7 L* (22-30) mmol/L BUN 36 H (7-17) mg/dL Creatinine 1.23 H (0.52-1.04) mg/dL Glucose 539 H* (74-99) mg/dL Total Protein 6.2 L (6.3-8.2) g/dL Albumin 3.4 L (3.5-5.0) g/dL Stool Occult Blood Positive H (Negative) CT scan - abdomen: report reviewed (Computed tomography scan of the abdomen with findings of cholelithiasis, hepatomegaly/steatosis and possible renal lesion.) Assessment and Plan (1) GI bleed Narrative/Plan: 75-year-old female with multiple medical comorbidities presenting with coffee- ground emesis and blood/clots per rectum. No history of GI bleed. No prior colonoscopy but she did have a EGD after uvula surgery in 2007. She does use NSAID therapy regularly taking Aleve. No abdominal pain reported. Patient found to have an acute fall in hemoglobin of 7.6 on presentation with a positive stool testing for occult blood. Unclear etiology, differential includes gastritis, esophagitis, peptic ulcer disease, AVM, Dieulafoy lesion or other etiology. Current Visit: Yes Status: Acute Code(s): K92.2 - GASTROINTESTINAL HEMORRHAGE, UNSPECIFIED SNOMED Code(s): 30082415 (2) Acute blood loss anemia Current Visit: Yes Status: Acute Code(s): D62 - ACUTE POSTHEMORRHAGIC ANEMIA SNOMED Code(s): 770936255 Plan: Supportive care Nothing by mouth Continue to monitor hemoglobin and hematocrit and transfuse as needed Avoid NSAID therapy Protonix 40 mg IV twice daily Plan for EGD tomorrow for further evaluation Hold any anticoagulation therapy at this time Further recommendations pending findings from EGD Thank you for allowing us to participate in the care of the patient
--- NOTE | 2020-11-22 13:11 | P.PCN ---
Date of Procedure: 11/22/20 Description of Procedure: BRIEF HISTORY: 75-year-old female with multiple medical comorbidities including dyslipidemia, diabetes mellitus, and thyroid disease who presented to the hospital with complaints of coffee-ground emesis and dark colored bowel movements. The patient reports symptoms of dark coffee-ground emesis. She also reports passing dark clots per rectum 2. Patient takes Aleve daily at home. She previously had an EGD in 2007 after uvula surgery. No prior colonoscopy. She denies any blood thinner use. Hemoglobin on presentation 7.9 with platelet count 496,000 and a WBC of 15.7. Stool testing was positive for occult blood. Computed tomography scan of the abdomen significant for hepatomegaly, cholelithiasis and possible renal lesion. Patient denies any prior history of peptic ulcer disease. No abdominal pain reported. PROCEDURE PERFORMED: Esophagogastroduodenoscopy with biopsy. PREOPERATIVE DIAGNOSIS: GI bleed, anemia of acute blood loss. ESTIMATED BLOOD LOSS: Minimal. IV sedation per anesthesia. PROCEDURE: After informed consent was obtained, the patient was brought into the endoscopy unit. IV sedation was administered by Anesthesia under continuous monitoring. Initially the Olympus GIF-190 video endoscope was inserted into the mouth. Esophagus intubated without any difficulty. It was gradually advanced into the stomach and duodenum and carefully examined. The bulb and the second part of the duodenum appeared normal, with biopsies taken. The scope at this time was withdrawn to the stomach, adequately insufflated with air, and upon careful examination, mucosa of the antrum, body, cardia and the fundus were significant for 3 cratered ulcers measuring 4 mm, 4 mm, and 11 mm in size located in the antrum of the stomach without any high risk stigmata for bleeding with biopsies taken at the ulcer edge. There is also moderate erythema and superficial erosions suggestive of moderate gastritis. The scope was then withdrawn into the esophagus. The GE junction was located at 36 cm from the incisors, with a small 1 cm hiatal hernia noted. The esophagus appeared normal. There were no erosions or ulcerations seen and the patient tolerated the procedure well. IMPRESSION: 1. 3 cratered nonbleeding ulcers in the antrum of the stomach without high risk stigmata for bleeding. 2. Moderate gastritis. 3. Biopsies of the duodenum, and the antral ulcers . RECOMMENDATIONS: The findings of this examination were discussed with the patient and her family. Okay to resume liquid diet today and advance as tolerated tomorrow. Continue Protonix 40 mg twice daily. Avoid NSAID use as the patient was previously on Aleve. Okay for transferred to stepdown unit with continued close monitoring of labs and clinically.
--- NOTE | 2020-11-22 14:34 | P.PN ---
Subjective Progress Note Date: 11/22/20 Principal diagnosis: Acute GI bleeding This is a 75-year-old female, known history of hypertension, type 2 diabetes, dyslipidemia, hypothyroidism, patient presented to the ER today with 1 day history of hematemesis, and melanotic stool. Patient also had some vague abdominal pain. Associated with vomiting blood. No previous history of GI bleeding. No previous history of gastric ulcer disease. No previous history of esophagitis. No previous history of alcohol related liver disease. Patient is not on any anticoagulation drugs but she does take baby aspirin daily and she takes Aleve few times per week for symptoms of aches and pains. At any rate patient was evaluated in the ER, her hemoglobin was noted to be 6.8, patient was admitted and I was asked to see her on consultation. GI was also consulted. In the meantime patient was placed on Protonix, and will continue to monitor her hemoglobin and hematocrit serially. Patient was also noted to have elevated blood sugar of 309, and she had mild metabolic acidosis with bicarb of 18 but normal anion gap. Patient was also noted to have a BUN of 48 creatinine of 0.95 Patient was reevaluated today on 11/22/2020, received a total of 2 units of packed RBCs since admission to the ICU. Hemoglobin is holding at 8.3 today. Patient underwent EGD today, and she was noted to have 3 nonbleeding ulcers in the antrum of the stomach without high risk stigmata for bleeding. There was also evidence of moderate gastritis. Hence the cup setter lockstitch recommended that we continue Protonix, and avoid nonsteroidal anti-inflammatory drugs. Patient was instructed not to use Aleve anymore. And considering the findings, the patient could be transferred to a regular medical floor rather than staying in the ICU. Clinically no active bleeding noted. And her hemoglobin seems to be relatively stable. Objective - Vital Signs Vital signs: Vital Signs Temp 99.0 F 11/22/20 12:00 Pulse 87 11/22/20 12:00 Resp 17 11/22/20 12:00 BP 165/71 11/22/20 12:00 Pulse Ox 95 11/22/20 12:00 Intake & Output 11/21/20 11/22/20 11/22/20 18:59 06:59 18:59 Intake Total 550 1781.72 350 Output Total 275 890 775 Balance 275 891.72 -425 Weight 90.718 kg 89.6 kg 89.6 kg Intake: IV 550 1100 350 D5-0.45% NaCl with KCl 150 750 20Meq/l 1,000 ml @ 150 mls/hr IV .Q6H40M PEE Rx# :[id number] D5-0.45% NaCl with KCl 350 300 20Meq/l 1,000 ml @ 50 mls /hr IV .Q20H PEE Rx#: [id number] Sodium Chloride 0.9% 1, 400 000 ml @ 200 mls/hr IV . Q5H PEE Rx#:[id number] Intake, IV Titration 61.72 Amount Insulin Regular 100 unit 61.72 In Sodium Chloride 0.9% 100 ml @ 0.1 UNITS/KG/HR 9.163 mls/hr IV .Q11H2M PEE Rx#:[id number] Blood Product 0 620 Rc As-1 Unit 0 310 [id number] Rc As-1 Unit 310 [id number] Output: Urine 275 890 775 Other: Voiding Method Indwelling Catheter Indwelling Catheter Indwelling Catheter - Exam Physical Exam: Revealed 75-year-old female in no distress. Head: Atraumatic, normocephalic. HEENT:[Neck is supple.] [No neck masses.] [No thyromegaly.] [No JVD.] Chest: [Clear throughout, no crackles, no rhonchi, no wheezes.] Cardiac Exam: [Normal S1 and S2, no S3 gallop, no murmur.] Abdomen: [Soft, nontender, no megaly, no rebound, no guarding, normal bowel sounds.] Extremities: [No clubbing, no edema, no cyanosis.] Neurological Exam: [No focal neurologic deficit. Alert and oriented 3. Psychiatric: Normal mood affect and normal mental status examination. Skin: No rashes.] - Labs CBC & Chem 7: 11/22/20 03:15 11/22/20 03:15 Labs: Abnormal Lab Results - Last 24 Hours (Table) 11/21/20 11/21/20 11/21/20 Range/Units 11:42 14:28 15:10 WBC (3.8-10.6) k/uL RBC (3.80-5.40) m/uL Hgb (11.4-16.0) gm/dL Hct (34.0-46.0) % RDW (11.5-15.5) % Neutrophils # (1.3-7.7) k/uL Sodium (137-145) mmol/L Chloride (98-107) mmol/L Carbon Dioxide (22-30) mmol/L BUN (7-17) mg/dL Glucose (74-99) mg/dL POC Glucose (mg/dL) 353 H 351 H (75-99) mg/dL Urine Glucose (UA) (Negative) Crossmatch See Detail 11/21/20 11/21/20 11/21/20 Range/Units 16:02 16:41 16:41 WBC 14.6 H (3.8-10.6) k/uL RBC 2.70 L (3.80-5.40) m/uL Hgb 6.8 L* (11.4-16.0) gm/dL Hct 21.6 L (34.0-46.0) % RDW (11.5-15.5) % Neutrophils # 12.6 H (1.3-7.7) k/uL Sodium (137-145) mmol/L Chloride 111 H (98-107) mmol/L Carbon Dioxide 18 L (22-30) mmol/L BUN 48 H (7-17) mg/dL Glucose 178 H (74-99) mg/dL POC Glucose (mg/dL) 309 H (75-99) mg/dL Urine Glucose (UA) (Negative) Crossmatch 11/21/20 11/21/20 11/21/20 Range/Units 17:02 18:10 19:05 WBC (3.8-10.6) k/uL RBC (3.80-5.40) m/uL Hgb (11.4-16.0) gm/dL Hct (34.0-46.0) % RDW (11.5-15.5) % Neutrophils # (1.3-7.7) k/uL Sodium (137-145) mmol/L Chloride (98-107) mmol/L Carbon Dioxide (22-30) mmol/L BUN (7-17) mg/dL Glucose (74-99) mg/dL POC Glucose (mg/dL) 200 H 160 H 121 H (75-99) mg/dL Urine Glucose (UA) (Negative) Crossmatch 11/21/20 11/22/20 11/22/20 Range/Units 20:54 01:22 03:15 WBC 12.5 H (3.8-10.6) k/uL RBC 3.10 L (3.80-5.40) m/uL Hgb 8.3 L D (11.4-16.0) gm/dL Hct 25.4 L (34.0-46.0) % RDW 15.7 H (11.5-15.5) % Neutrophils # (1.3-7.7) k/uL Sodium 136 L (137-145) mmol/L Chloride 113 H (98-107) mmol/L Carbon Dioxide 17 L (22-30) mmol/L BUN 43 H (7-17) mg/dL Glucose 150 H (74-99) mg/dL POC Glucose (mg/dL) 100 H (75-99) mg/dL Urine Glucose (UA) (Negative) Crossmatch 11/22/20 11/22/20 11/22/20 Range/Units 03:15 06:09 11:30 WBC (3.8-10.6) k/uL RBC (3.80-5.40) m/uL Hgb (11.4-16.0) gm/dL Hct (34.0-46.0) % RDW (11.5-15.5) % Neutrophils # (1.3-7.7) k/uL Sodium (137-145) mmol/L Chloride 112 H (98-107) mmol/L Carbon Dioxide 19 L (22-30) mmol/L BUN 40 H (7-17) mg/dL Glucose 142 H (74-99) mg/dL POC Glucose (mg/dL) 160 H (75-99) mg/dL Urine Glucose (UA) 3+ H (Negative) Crossmatch 11/22/20 Range/Units 12:03 WBC (3.8-10.6) k/uL RBC (3.80-5.40) m/uL Hgb (11.4-16.0) gm/dL Hct (34.0-46.0) % RDW (11.5-15.5) % Neutrophils # (1.3-7.7) k/uL Sodium (137-145) mmol/L Chloride (98-107) mmol/L Carbon Dioxide (22-30) mmol/L BUN (7-17) mg/dL Glucose (74-99) mg/dL POC Glucose (mg/dL) 190 H (75-99) mg/dL Urine Glucose (UA) (Negative) Crossmatch Assessment and Plan Assessment: Impression: Acute upper GI bleeding secondary to gastric ulcers and gastritis Acute blood loss anemia secondary to GI bleeding. Acute diabetic ketoacidosis. Resolved. History of benign essential hypertension. Type 2 diabetes. History of hypothyroidism. Abnormal CT of the abdomen and pelvis suggestive of possible renal cell carcinoma, needs to be evaluated on outpatient basis by urology. Recommendation: EGD report was noted Patient to avoid nonsteroidal inflammatory drugs. Patient to be transferred out of the ICU to a regular medical floor. Protonix empirically 40 mg IV push twice a day. Consider discharge planning in the next 24 hours. Discharge home on Protonix. Must have outpatient follow-up with urology regarding her abnormal finding on that kidney questionable renal cell carcinoma. Time with Patient: Less than 30
--- NOTE | 2020-11-22 14:48 | P.PN ---
Subjective Progress Note Date: 11/22/20 Cheyenne Crump, is a 75-year-old female who presented to [facility] emergency room with a chief complaint of vomiting up coffee-ground material and having abdominal pain. She was evaluated in the emergency room her vital examination on presentation revealed a temperature of 96.8 pulse 90 respiration 18 blood pressure 91/50 pulse ox 95% on 2 L nasal cannula white blood count on presentation 15.7 hemoglobin 7.9 lately it count 496 sodium 138 potassium 5.3 CO2 was 7 BUN 36 creatinine 1.23 glucose level 539 stools Hemoccult was positive patient was admitted to intensive care unit computed tomography scan of the abdomen and pelvis was done and revealed evidence of cholelithiasis, hepatomegaly, and possible right small renal lesion on the lower lobe that might indicate renal cell carcinoma per Radiology. Patient was admitted to intensive care unit, critical care consultation and gastroenterology consultation were requested. Past medical history is significant for diabetes mellitus, [id number], hyperlipidemia, hypothyroidism, osteoarthritis, gastroesophageal reflux disease, patient denies any previous history of gastric ulcer or GI bleed in the past. No history of liver cirrhosis. On review of systems patient was seen in the ICU at this time she had significant improvement she received IV fluid, there is no fever or chills no headache or dizziness no chest pain no shortness of breath no cough no nausea or vomiting no abdominal pain no diarrhea no burning with urination no frequency or urgency and no hematuria. on 11/22/2020 patient is alert and oriented 3. Patient reports significant improvement in regards to nausea and vomiting. Plans for EGD today. Hemoglobin 8.3. Per nursing staff patient has been transitioned to sliding scale insulin. Vitals have remained stable.patient denies chest pain or shortness of breath. Patient denies nausea vomiting or diarrhea. Patient denies any urinary burning or frequency Objective - Vital Signs Vital signs: Vital Signs Temp 99.0 F 11/22/20 12:00 Pulse 87 11/22/20 12:00 Resp 17 11/22/20 12:00 BP 165/71 11/22/20 12:00 Pulse Ox 95 11/22/20 12:00 Intake & Output 11/21/20 11/22/20 11/22/20 18:59 06:59 18:59 Intake Total 550 1781.72 350 Output Total 275 890 775 Balance 275 891.72 -425 Weight 90.718 kg 89.6 kg 89.6 kg Intake: IV 550 1100 350 D5-0.45% NaCl with KCl 150 750 20Meq/l 1,000 ml @ 150 mls/hr IV .Q6H40M PEE Rx# :[id number] D5-0.45% NaCl with KCl 350 300 20Meq/l 1,000 ml @ 50 mls /hr IV .Q20H PEE Rx#: [id number] Sodium Chloride 0.9% 1, 400 000 ml @ 200 mls/hr IV . Q5H PEE Rx#:[id number] Intake, IV Titration 61.72 Amount Insulin Regular 100 unit 61.72 In Sodium Chloride 0.9% 100 ml @ 0.1 UNITS/KG/HR 9.163 mls/hr IV .Q11H2M PEE Rx#:[id number] Blood Product 0 620 Rc As-1 Unit 0 310 [id number] Rc As-1 Unit 310 [id number] Output: Urine 275 890 775 Other: Voiding Method Indwelling Catheter Indwelling Catheter Indwelling Catheter - Exam In general patient is alert and oriented 3 in no apparent distress HEENT head normocephalic and atraumatic Neck is supple no JVD no goiter no lymphadenopathy Chest exam reveals a few scattered crackles no wheezing Cardiac exam reveals regular heart sounds S1 and S2 no gallops no murmurs Abdomen is soft nontender no organomegaly with normal bowel sounds Extremity exam reveals no edema no cyanosis or clubbing Neurological examination reveals no gross focal deficit - Labs CBC & Chem 7: 11/22/20 03:15 11/22/20 03:15 Labs: Abnormal Lab Results - Last 24 Hours (Table) 11/21/20 11/21/20 11/21/20 Range/Units 11:42 15:10 16:02 WBC (3.8-10.6) k/uL RBC (3.80-5.40) m/uL Hgb (11.4-16.0) gm/dL Hct (34.0-46.0) % RDW (11.5-15.5) % Neutrophils # (1.3-7.7) k/uL Sodium (137-145) mmol/L Chloride (98-107) mmol/L Carbon Dioxide (22-30) mmol/L BUN (7-17) mg/dL Glucose (74-99) mg/dL POC Glucose (mg/dL) 351 H 309 H (75-99) mg/dL Urine Glucose (UA) (Negative) Crossmatch See Detail 11/21/20 11/21/20 11/21/20 Range/Units 16:41 16:41 17:02 WBC 14.6 H (3.8-10.6) k/uL RBC 2.70 L (3.80-5.40) m/uL Hgb 6.8 L* (11.4-16.0) gm/dL Hct 21.6 L (34.0-46.0) % RDW (11.5-15.5) % Neutrophils # 12.6 H (1.3-7.7) k/uL Sodium (137-145) mmol/L Chloride 111 H (98-107) mmol/L Carbon Dioxide 18 L (22-30) mmol/L BUN 48 H (7-17) mg/dL Glucose 178 H (74-99) mg/dL POC Glucose (mg/dL) 200 H (75-99) mg/dL Urine Glucose (UA) (Negative) Crossmatch 11/21/20 11/21/20 11/21/20 Range/Units 18:10 19:05 20:54 WBC (3.8-10.6) k/uL RBC (3.80-5.40) m/uL Hgb (11.4-16.0) gm/dL Hct (34.0-46.0) % RDW (11.5-15.5) % Neutrophils # (1.3-7.7) k/uL Sodium (137-145) mmol/L Chloride (98-107) mmol/L Carbon Dioxide (22-30) mmol/L BUN (7-17) mg/dL Glucose (74-99) mg/dL POC Glucose (mg/dL) 160 H 121 H 100 H (75-99) mg/dL Urine Glucose (UA) (Negative) Crossmatch 11/22/20 11/22/20 11/22/20 Range/Units 01:22 03:15 03:15 WBC 12.5 H (3.8-10.6) k/uL RBC 3.10 L (3.80-5.40) m/uL Hgb 8.3 L D (11.4-16.0) gm/dL Hct 25.4 L (34.0-46.0) % RDW 15.7 H (11.5-15.5) % Neutrophils # (1.3-7.7) k/uL Sodium 136 L (137-145) mmol/L Chloride 113 H 112 H (98-107) mmol/L Carbon Dioxide 17 L 19 L (22-30) mmol/L BUN 43 H 40 H (7-17) mg/dL Glucose 150 H 142 H (74-99) mg/dL POC Glucose (mg/dL) (75-99) mg/dL Urine Glucose (UA) (Negative) Crossmatch 11/22/20 11/22/20 11/22/20 Range/Units 06:09 11:30 12:03 WBC (3.8-10.6) k/uL RBC (3.80-5.40) m/uL Hgb (11.4-16.0) gm/dL Hct (34.0-46.0) % RDW (11.5-15.5) % Neutrophils # (1.3-7.7) k/uL Sodium (137-145) mmol/L Chloride (98-107) mmol/L Carbon Dioxide (22-30) mmol/L BUN (7-17) mg/dL Glucose (74-99) mg/dL POC Glucose (mg/dL) 160 H 190 H (75-99) mg/dL Urine Glucose (UA) 3+ H (Negative) Crossmatch Assessment and Plan Plan: acute upper GI bleeding secondary to gastric ulcers and gastritis. hgb 8.3 Acute metabolic acidosis Possible acute ketoacidosis, although patient has a known history of diabetes mellitus type 2, will check ketones, will check hemoglobin A1c Underlying history of hypertension Underlying history of hyperlipidemia Underlying history of hypothyroidism Right kidney lesion in the lower pole possibly representing renal cell carcinoma per radiology patient need to be referred to urology as outpatient for further investigation At this time patient is admitted to ICU she is maintained on IV fluid and IV insulin EGD per GI services 11/22/2020 transitioned to sliding scale insulin critical care and GI services following
[2020-11-22 16:38] LABS: Glucose,Whole Blood 131 mg/dL (75-99)
[2020-11-22 19:45] LABS: Glucose,Whole Blood 193 mg/dL (75-99)
[2020-11-22] MEDS ORDERED: INSULIN DETEMIR (LEVEMIR) 100 UNIT/ML SYR SQ SCH (21:00)
[2020-11-23 04:35] LABS: Basophils % (A) 1 %; Eosinophils # (A) 0.2 k/uL (0-0.7); Eosinophils % (A) 2 %; HCT 24.4 % (34.0-46.0); Hypochromasia Slight; Lymphocytes # (A) 2.3 k/uL (1.0-4.8); Lymphocytes % (A) 29 %; MCH 26.3 pg (25.0-35.0); MCHC 32.5 g/dL (31.0-37.0); MCV 80.9 fL (80.0-100.0); Mean Platelet Volume 7.1; Monocytes # (A) 0.5 k/uL (0-1.0); Monocytes % (A) 6 %; Neutrophils # (A) 4.7 k/uL (1.3-7.7); Neutrophils % (A) 61 %; Platelet Count 257 k/uL (150-450); Poikilocytosis Slight; RBC 3.02 m/uL (3.80-5.40); RDW 15.9 % (11.5-15.5); WBC 7.8 k/uL (3.8-10.6)
[2020-11-23 04:45] LABS: Calcium 8.7 mg/dL (8.4-10.2); Potassium 4.1 mmol/L (3.5-5.1); Total Bilirubin 0.4 mg/dL (0.2-1.3); Total Protein 5.7 g/dL (6.3-8.2)
[2020-11-23 06:36] LABS: Glucose,Whole Blood 153 mg/dL (75-99)
[2020-11-23] MEDS: INSULIN ASPART (NovoLOG) 100 UNIT/ML VIAL SQ SCH ×2 (06:54→12:51)
[2020-11-23] MEDS: PANTOPRAZOLE 40 MG/10 ML VIAL IVP SCH (07:50)
--- NOTE | 2020-11-23 10:39 | P.PN ---
Subjective Progress Note Date: 11/23/20 Principal diagnosis: Patient is seen and examined sitting up in the bedside chair in the ICU. She is status post upper endoscopy which revealed 3 ulcers without any The patient is seen and examined sitting up in a bedside chair. He is status post upper endoscopy with findings that included 3 cratered nonbleeding ulcers in the antrum of the stomach without high risk stigmata for bleeding and moderate gastritis. She denies any further nausea or vomiting. He denies any abdominal pain or black stools. She tolerated a full liquid breakfast this morning. hemoglobin is stable at 8.4. Objective - Vital Signs Vital signs: Vital Signs Temp 98.9 F 11/23/20 08:00 Pulse 91 11/23/20 08:00 Resp 24 11/23/20 08:00 BP 118/60 11/23/20 08:00 Pulse Ox 98 11/23/20 08:00 Intake & Output 11/22/20 11/23/20 11/23/20 18:59 06:59 18:59 Intake Total 400 Output Total 975 Balance -575 Weight 89.6 kg 88 kg Intake: IV 400 D5-0.45% NaCl with KCl 350 20Meq/l 1,000 ml @ 50 mls /hr IV .Q20H PEE Rx#: [id number] Output: Urine 975 Other: Voiding Method Indwelling Catheter Toilet Toilet # Voids 2 4 # Bowel Movements 1 - Exam General appearance: The patient is alert, oriented, appears in no acute distress. HET: Head is normocephalic and atraumatic. Conjunctiva pink. Sclera anicteric. Neck: Supple without lymphadenopathy. Abdomen: Soft, nontender, nondistended with bowel sounds. No guarding or rigidity. Extremities: Normal skin color and turgor. No pedal edema Skin: No rashes, no jaundice Neurological: No focal deficits. Alert and oriented 3. - Labs CBC & Chem 7: 11/23/20 03:44 11/23/20 03:44 Labs: Abnormal Lab Results - Last 24 Hours (Table) 11/22/20 11/22/20 11/22/20 Range/Units 03:15 11:30 12:03 RBC (3.80-5.40) m/uL Hgb (11.4-16.0) gm/dL Hct (34.0-46.0) % RDW (11.5-15.5) % Chloride (98-107) mmol/L Carbon Dioxide (22-30) mmol/L BUN (7-17) mg/dL Glucose (74-99) mg/dL POC Glucose (mg/dL) 190 H (75-99) mg/dL Hemoglobin A1c 6.9 H (4.0-6.0) % Total Protein (6.3-8.2) g/dL Albumin (3.5-5.0) g/dL Urine Glucose (UA) 3+ H (Negative) 11/22/20 11/22/20 11/23/20 Range/Units 16:37 19:44 03:44 RBC 3.02 L (3.80-5.40) m/uL Hgb 8.0 L (11.4-16.0) gm/dL Hct 24.4 L (34.0-46.0) % RDW 15.9 H (11.5-15.5) % Chloride (98-107) mmol/L Carbon Dioxide (22-30) mmol/L BUN (7-17) mg/dL Glucose (74-99) mg/dL POC Glucose (mg/dL) 131 H 193 H (75-99) mg/dL Hemoglobin A1c (4.0-6.0) % Total Protein (6.3-8.2) g/dL Albumin (3.5-5.0) g/dL Urine Glucose (UA) (Negative) 11/23/20 11/23/20 Range/Units 03:44 06:34 RBC (3.80-5.40) m/uL Hgb (11.4-16.0) gm/dL Hct (34.0-46.0) % RDW (11.5-15.5) % Chloride 109 H (98-107) mmol/L Carbon Dioxide 20 L (22-30) mmol/L BUN 18 H (7-17) mg/dL Glucose 129 H (74-99) mg/dL POC Glucose (mg/dL) 153 H (75-99) mg/dL Hemoglobin A1c (4.0-6.0) % Total Protein 5.7 L (6.3-8.2) g/dL Albumin 3.0 L (3.5-5.0) g/dL Urine Glucose (UA) (Negative) Assessment and Plan (1) GI bleed Narrative/Plan: 75-year-old female with multiple medical comorbidities presenting with coffee- ground emesis and blood/clots per rectum. No history of GI bleed. No prior colonoscopy but she did have a EGD after uvula surgery in 2007. She does use NSAID therapy regularly taking Aleve. No abdominal pain reported. Patient found to have an acute fall in hemoglobin of 7.6 on presentation with a positive stool testing for occult blood. Unclear etiology, differential includes gastritis, esophagitis, peptic ulcer disease, AVM, Dieulafoy lesion or other etiology. He is status post upper endoscopy which revealed 3 cratered nonbleeding ulcers in the antrum of the stomach without high risk stigmata for bleeding. Moderate gastritis. The patient was advised to continue Protonix 40 mg twice daily and avoid NSAID use. Current Visit: Yes Status: Acute Code(s): K92.2 - GASTROINTESTINAL HEMORRHAGE, UNSPECIFIED SNOMED Code(s): 89363984 (2) Acute blood loss anemia Current Visit: Yes Status: Acute Code(s): D62 - ACUTE POSTHEMORRHAGIC ANEMIA SNOMED Code(s): 385029620 Plan: Supportive care Advance to consistent carbohydrate diet Continue Protonix 40 mg twice daily Discussed with patient to avoid NSAID use, and she was previously using Aleve Patient may be discharged home from a gastroenterology standpoint Patient instructed to follow-up with gastroenterology for biopsy results Thank you for this consultation Dr. Rees I agree with the dictator's note, documented as a scribe by Gemma Deras.
[2020-11-23 13:42] VITALS: BP 138/70; PULSE 100; RESP 16; TEMP 98.4
--- NOTE | 2020-11-23 14:06 | P.DS ---
Providers Date of admission: 11/21/20 12:54 Expected date of discharge: 11/23/20 Attending physician: Sarah Good Consults: 11/21/20 12:03 Consult Physician Urgent Consulting Provider: Bowen Rees Consult Reason/Comments: GI bleed Do you want consulting provider notified?: Yes 11/21/20 12:54 Consult Physician Stat Consulting Provider: Anabel Lyon Consult Reason/Comments: icu patient Do you want consulting provider notified?: Already Contacted [facility] Diagnosis on discharge: 1. acute upper GI bleeding secondary to gastric ulcers and gastritis. hgb 8.3 2. Acute metabolic acidosis 3. Possible acute ketoacidosis, although patient has a known history of diabetes mellitus type 2, will check ketones, will check hemoglobin A1c 4. Underlying history of hypertension 5. Underlying history of hyperlipidemia 6. Underlying history of hypothyroidism 7. Right kidney lesion in the lower pole possibly representing renal cell carcinoma per radiology patient need to be referred to urology as outpatient for further investigation Hospital course: Cheyenne Crump, is a 75-year-old female who presented to [facility] emergency room with a chief complaint of vomiting up coffee-ground material and having abdominal pain. She was evaluated in the emergency room her vital examination on presentation revealed a temperature of 96.8 pulse 90 respiration 18 blood pressure 91/50 pulse ox 95% on 2 L nasal cannula white blood count on presentation 15.7 hemoglobin 7.9 lately it count 496 sodium 138 potassium 5.3 CO2 was 7 BUN 36 creatinine 1.23 glucose level 539 stools Hemoccult was positive patient was admitted to intensive care unit computed tomography scan of the abdomen and pelvis was done and revealed evidence of cholelithiasis, hepatomegaly, and possible right small renal lesion on the lower lobe that might indicate renal cell carcinoma per Radiology. Patient was admitted to intensive care unit, critical care consultation and gastroenterology consultation were requested. Past medical history is significant for diabetes mellitus, [id number], hyperlipidemia, hypothyroidism, osteoarthritis, gastroesophageal reflux disease, patient denies any previous history of gastric ulcer or GI bleed in the past. No history of liver cirrhosis. On review of systems patient was seen in the ICU at this time she had significant improvement she received IV fluid, there is no fever or chills no headache or dizziness no chest pain no shortness of breath no cough no nausea or vomiting no abdominal pain no diarrhea no burning with urination no frequency or urgency and no hematuria. on 11/22/2020 patient is alert and oriented 3. Patient reports significant improvement in regards to nausea and vomiting. Plans for EGD today. Hemoglobin 8.3. Per nursing staff patient has been transitioned to sliding scale insulin. Vitals have remained stable.patient denies chest pain or shortness of breath. Patient denies nausea vomiting or diarrhea. Patient denies any urinary burning or frequency On 11/23/2020 patient was seen and examined on the medical floor she is alert and oriented 3 in no apparent distress there is no fever or chills no headache or dizziness no chest pain no shortness of breath no cough no nausea or vomiting no abdominal pain no diarrhea no blood in the stools no burning with urination no frequency or urgency and no hematuria. Patient underwent EGD yesterday which revealed 3 cratered nonbleeding ulcer in the antrum of the stomach moderate gastritis, biopsies were taken patient was monitored overnight hemoglobin is down to 8.0 today patient was cleared by gastroenterology to be discharged home she was given a prescription for Protonix 40 mg by mouth twice daily and was told to avoid NSAIDs use. During this admission patient had a computed tomography scan of the abdomen and pelvis that revealed a right lower pole kidney lesion that could represent renal cell carcinoma recommendation were to refer to urology as outpatient. Referral will be made to urology. Otherwise patient will follow-up with her primary care physician Dr. Vanegas within one week Patient Condition at Discharge: Critical Plan - Discharge Summary Discharge Rx Participant: No New Discharge Prescriptions: New Pantoprazole [Protonix] 40 mg PO BID 30 Days #60 tablet. Continue glyBURIDE/METFORMIN HCL [glyBURIDE/METFORMIN HCL 5-500 mg] 1 tab PO HS Levothyroxine Sodium [Synthroid] 200 mcg PO DAILY Aspirin EC [Ecotrin Low Dose] 81 mg PO DAILY glyBURIDE/METFORMIN HCL [glyBURIDE/METFORMIN HCL 5-500 mg] 2 tab PO DAILY Cholecalciferol [Vitamin D3 (25 Mcg = 1000 Iu)] 25 mcg PO DAILY Atorvastatin [Lipitor] 10 mg PO DAILY Discharge Medication List Aspirin EC [Ecotrin Low Dose] 81 mg PO DAILY 11/21/20 [History] Atorvastatin [Lipitor] 10 mg PO DAILY 11/21/20 [History] Cholecalciferol [Vitamin D3 (25 Mcg = 1000 Iu)] 25 mcg PO DAILY 11/21/20 [History] Levothyroxine Sodium [Synthroid] 200 mcg PO DAILY 11/21/20 [History] glyBURIDE/METFORMIN HCL [glyBURIDE/METFORMIN HCL 5-500 mg] 1 tab PO HS 11/21/20 [History] glyBURIDE/METFORMIN HCL [glyBURIDE/METFORMIN HCL 5-500 mg] 2 tab PO DAILY 11/21/20 [History] Pantoprazole [Protonix] 40 mg PO BID 30 Days #60 tablet. 11/23/20 [Rx] Follow up Appointment(s)/Referral(s): Cristofer Vanegas MD [Primary Care Provider] - 1-2 days Sergio Pino MD [STAFF PHYSICIAN] - 1 Week Bowen Rees MD [STAFF PHYSICIAN] - 1 Week
--- NOTE | 2020-11-23 14:20 | P.PN ---
Subjective Progress Note Date: 11/23/20 Principal diagnosis: Acute GI bleeding This is a 75-year-old female, known history of hypertension, type 2 diabetes, dyslipidemia, hypothyroidism, patient presented to the ER today with 1 day history of hematemesis, and melanotic stool. Patient also had some vague abdominal pain. Associated with vomiting blood. No previous history of GI bleeding. No previous history of gastric ulcer disease. No previous history of esophagitis. No previous history of alcohol related liver disease. Patient is not on any anticoagulation drugs but she does take baby aspirin daily and she takes Aleve few times per week for symptoms of aches and pains. At any rate patient was evaluated in the ER, her hemoglobin was noted to be 6.8, patient was admitted and I was asked to see her on consultation. GI was also consulted. In the meantime patient was placed on Protonix, and will continue to monitor her hemoglobin and hematocrit serially. Patient was also noted to have elevated blood sugar of 309, and she had mild metabolic acidosis with bicarb of 18 but normal anion gap. Patient was also noted to have a BUN of 48 creatinine of 0.95 Patient was reevaluated today on 11/22/2020, received a total of 2 units of packed RBCs since admission to the ICU. Hemoglobin is holding at 8.3 today. Patient underwent EGD today, and she was noted to have 3 nonbleeding ulcers in the antrum of the stomach without high risk stigmata for bleeding. There was also evidence of moderate gastritis. Hence the manager staffing recommended that we continue Protonix, and avoid nonsteroidal anti-inflammatory drugs. Patient was instructed not to use Aleve anymore. And considering the findings, the patient could be transferred to a regular medical floor rather than staying in the ICU. Clinically no active bleeding noted. And her hemoglobin seems to be relatively stable. Patient was reevaluated today on 11/23/2020, patient is doing great, no further episodes of GI bleeding. Hemoglobin remains holding at 8. Patient remains on Protonix, and I would likely clear the patient to be discharged home today if cleared by gastroenterology. Patient is asymptomatic, she is doing great Objective - Vital Signs Vital signs: Vital Signs Temp 98.4 F 11/23/20 13:15 Pulse 100 11/23/20 13:15 Resp 16 11/23/20 13:15 BP 138/70 11/23/20 13:15 Pulse Ox 99 11/23/20 13:15 Intake & Output 11/22/20 11/23/20 11/23/20 18:59 06:59 18:59 Intake Total 400 Output Total 975 Balance -575 Weight 89.6 kg 88 kg Intake: IV 400 D5-0.45% NaCl with KCl 350 20Meq/l 1,000 ml @ 50 mls /hr IV .Q20H PEE Rx#: [id number] Output: Urine 975 Other: Voiding Method Indwelling Catheter Toilet Toilet # Voids 2 4 # Bowel Movements 1 - Exam Physical Exam: Revealed 75-year-old female in no distress. Head: Atraumatic, normocephalic. HEENT:[Neck is supple.] [No neck masses.] [No thyromegaly.] [No JVD.] Chest: [Clear throughout, no crackles, no rhonchi, no wheezes.] Cardiac Exam: [Normal S1 and S2, no S3 gallop, no murmur.] Abdomen: [Soft, nontender, no megaly, no rebound, no guarding, normal bowel sounds.] Extremities: [No clubbing, no edema, no cyanosis.] Neurological Exam: [No focal neurologic deficit. Alert and oriented 3. Psychiatric: Normal mood affect and normal mental status examination. Skin: No rashes.] - Labs CBC & Chem 7: 11/23/20 03:44 11/23/20 03:44 Labs: Abnormal Lab Results - Last 24 Hours (Table) 11/22/20 11/22/20 11/22/20 Range/Units 03:15 16:37 19:44 RBC (3.80-5.40) m/uL Hgb (11.4-16.0) gm/dL Hct (34.0-46.0) % RDW (11.5-15.5) % Chloride (98-107) mmol/L Carbon Dioxide (22-30) mmol/L BUN (7-17) mg/dL Glucose (74-99) mg/dL POC Glucose (mg/dL) 131 H 193 H (75-99) mg/dL Hemoglobin A1c 6.9 H (4.0-6.0) % Total Protein (6.3-8.2) g/dL Albumin (3.5-5.0) g/dL 11/23/20 11/23/20 11/23/20 Range/Units 03:44 03:44 06:34 RBC 3.02 L (3.80-5.40) m/uL Hgb 8.0 L (11.4-16.0) gm/dL Hct 24.4 L (34.0-46.0) % RDW 15.9 H (11.5-15.5) % Chloride 109 H (98-107) mmol/L Carbon Dioxide 20 L (22-30) mmol/L BUN 18 H (7-17) mg/dL Glucose 129 H (74-99) mg/dL POC Glucose (mg/dL) 153 H (75-99) mg/dL Hemoglobin A1c (4.0-6.0) % Total Protein 5.7 L (6.3-8.2) g/dL Albumin 3.0 L (3.5-5.0) g/dL Assessment and Plan Assessment: Impression: Acute upper GI bleeding secondary to gastric ulcers and gastritis Acute blood loss anemia secondary to GI bleeding. Acute diabetic ketoacidosis. Resolved. History of benign essential hypertension. Type 2 diabetes. History of hypothyroidism. Abnormal CT of the abdomen and pelvis suggestive of possible renal cell carcinoma, needs to be evaluated on outpatient basis by urology. Recommendation: Patient was cleared for discharge from my perspective.. Discharge home on Protonix. Time with Patient: Less than 30
== END 2020-11-23 15:04 | disposition home or self-care (01) | DRG 377 ==
LOC: EC 11:08 → 2SICU 12:54 → 6PED 11-23 13:08
PROVIDERS: ADMIT Internal Medicine; ATTEND Internal Medicine
PROC: 0DB98ZX Excision of Duodenum, Via Natural or Artificial Opening Endoscopic, Diagnostic (ICD-10-PCS; principal; 2020-11-21)
PROC: 0DB68ZX Excision of Stomach, Via Natural or Artificial Opening Endoscopic, Diagnostic (ICD-10-PCS; 2020-11-21)
DX: K29.71 Gastritis, unspecified, with bleeding (principal); E11.10 Type 2 diabetes mellitus with ketoacidosis without coma; D62 Acute posthemorrhagic anemia; E87.2 Acidosis; C64.1 Malignant neoplasm of right kidney, except renal pelvis; K92.0 Hematemesis; K25.9 Gastric ulcer, unspecified as acute or chronic, without hemorrhage or perforation; I10 Essential (primary) hypertension; E78.5 Hyperlipidemia, unspecified; E03.9 Hypothyroidism, unspecified; K21.9 Gastro-esophageal reflux disease without esophagitis; K80.20 Calculus of gallbladder without cholecystitis without obstruction; R16.0 Hepatomegaly, not elsewhere classified; M19.90 Unspecified osteoarthritis, unspecified site; K44.9 Diaphragmatic hernia without obstruction or gangrene; Z79.84 Long term (current) use of oral hypoglycemic drugs; Z79.82 Long term (current) use of aspirin; Z79.890 Hormone replacement therapy; Z79.899 Other long term (current) drug therapy; Z90.710 Acquired absence of both cervix and uterus; Z98.51 Tubal ligation status
CPT/HCPCS: 36415; 43239; 74177; 80048; 80051; 80053; 81003; 82272; 82565; 82607; 82728; 82746; 82947; 83036; 83540; 83550; 84100; 84484; 84520; 85025; 85027; 85610; 85730; 86850; 86900; 86901; 86920; 88305; 93005

== ENCOUNTER 2021-01-04 07:58 | Day surgery (SDC) | payer MEDICARE, BC ==
[2021-01-02 10:22] VITALS: BMI 33.6
[~2021-01-04 07:58] MED LIST: LACTATED RINGERS 1,000 ML IV SCH
[2021-01-04 08:37] VITALS: RESP 16; TEMP 97.1
[2021-01-04] MEDS ORDERED: LIDOCAINE 1% (10MG/ML) FOR IV START INTRADERMA ONE (08:45)
[2021-01-04] MEDS ORDERED: LACTATED RINGERS 1,000 ML IV ONE (08:45)
[2021-01-04 08:48] LABS: Glucose,Whole Blood 188 mg/dL (75-99)
[2021-01-04] MEDS ORDERED: PROPOFOL 10 MG/ML 20 ML VIAL IV ONE (08:52)
--- NOTE | 2021-01-04 09:29 | P.PCN ---
Date of Procedure: 01/04/21 Description of Procedure: Brief history: Patient is a pleasant 75-year-old female presenting for outpatient esophagogastroduodenoscopy and colonoscopy for evaluation of gastric ulcer and screening for malignant neoplasm of the colon. Previously seen in the hospital the patient had complained of coffee-ground emesis and dark colored bowel movements. She was taken for EGD on 11/22/20 with findings of 3 cratered nonbleeding ulcers in the antrum of the stomach. Patient has been on Protonix twice daily. No abdominal pain. No further symptoms. No prior screening for colon cancer Procedure performed: Esophagogastroduodenoscopy with biopsy Colonoscopy with polypectomy Estimated blood loss: Minimal. Preoperative diagnosis: Gastric ulcer, screening for malignant neoplasm of the colon, no prior colonoscopy Anesthesia: [facility] [place] Procedure: After informed consent was obtained from the patient was brought into the endoscopy unit and IV sedation was administered by anesthesia under continuous monitoring. Initially upper endoscopy was done. The Olympus GF 190 video endoscope was inserted into the mouth and esophagus intubated without any difficulty and was gradually advanced into the stomach and duodenum and carefully examined. The bulb and second part of the duodenum appeared normal. The scope was then withdrawn into the stomach adequately insufflated with air and upon careful examination the antrum and body, cardia and fundus appeared normal, some mild gastritis and evidence of well healing antral ulcers with biopsies of the antrum taken. The scope was then withdrawn into the esophagus. The GE junction was located at 37 cm to the incisors. It appeared regular with no erythema erosions or ulcerations. Rest of the esophagus appeared normal. Patient tolerated the procedure well. At this time the patient continued to remain sedation. Initial digital rectal examination was normal. Olympus CF 190 video colonoscope was then inserted into the rectum and gradually advanced to the cecum without any difficulty. Careful examination was performed as the scope was gradually being withdrawn. The prep was excellent. The cecum, ascending colon, transverse colon, descending colon, sigmoid colon and rectum appeared normal, with a 4 mm ascending colon polyp removed with cold snare polypectomy. Retroflexion was performed in the rectum and no lesions were noted, low-grade internal hemorrhoids. Patient tolerated the procedure well. Impression: 1. Well healing antral ulcers. Biopsies of the antrum taken. Mild gastritis. 2. Small flat ascending colon polyp removed with cold snare polypectomy. Internal hemorrhoids. Recommendations: Findings of this examination were discussed with the patient as well as her daughter. Okay to resume diet. Okay to resume medications. Continue Protonix daily for now. Follow-up in the clinic as scheduled. Repeat colonoscopy in 7 years if medically stable at that time. Await pathology from biopsies and polypectomy.
[2021-01-04 09:46] VITALS: BP 131/82; PULSE 73
== END 2021-01-04 10:14 | disposition home or self-care (01) ==
LOC: ORWHC2ENDO 07:58
PROVIDERS: ATTEND Internal Medicine
DX: Z12.11 Encounter for screening for malignant neoplasm of colon (principal); D12.2 Benign neoplasm of ascending colon; K64.8 Other hemorrhoids; K25.9 Gastric ulcer, unspecified as acute or chronic, without hemorrhage or perforation; K31.9 Disease of stomach and duodenum, unspecified; K21.9 Gastro-esophageal reflux disease without esophagitis; K29.70 Gastritis, unspecified, without bleeding; E78.5 Hyperlipidemia, unspecified; E11.9 Type 2 diabetes mellitus without complications; E07.9 Disorder of thyroid, unspecified; Z98.51 Tubal ligation status; Z98.42 Cataract extraction status, left eye; Z98.41 Cataract extraction status, right eye; Z97.2 Presence of dental prosthetic device (complete) (partial); Z98.890 Other specified postprocedural states; Z79.84 Long term (current) use of oral hypoglycemic drugs; Z79.82 Long term (current) use of aspirin; Z79.890 Hormone replacement therapy; Z79.899 Other long term (current) drug therapy
CPT/HCPCS: 88305; 45385; 43239; J2704

== ENCOUNTER → 2021-05-23 | Outpatient (CLI) | payer MEDICARE, BC ==
--- NOTE | 2021-05-23 16:14 | CT ---
EXAMINATION TYPE: CT abdomen w con DATE OF EXAM: 05/23/2021 COMPARISON: 11/21/2020 INDICATION: follow up renal mass DLP: 1237.6 mGycm, Automated exposure control for dose reduction was used. CONTRAST: 100 mL of Isovue 300. Study performed with Oral Contrast TECHNIQUE: Axial images were obtained from above the diaphragm to the pubic rami in the axial plane a t 5 mm thick sections. Reconstructed images are reviewed on the computer in the coronal plane. FINDINGS: Limited CT sections are obtained the lung bases. The lung bases are clear. CT ABDOMEN: Liver: Normal Spleen: Normal Pancreas: Normal Adrenal glands: The adrenal glands are normal. Gallbladder: Gallstones present. Kidneys: There is a 2.7 cm mass at the inferior anterior pole right kidney. This contains a small cys t. Finding is unchanged from comparison. Correlation with ultrasound is recommended. No hydronephrosi s is present. Cortical renal cysts are present on the left kidney. Delayed images were obtained th rough the kidneys, there appears to be some mild early washout of this mass. Aorta: Vascular calcification is within the aorta. Inferior vena cava: Normal. IMPRESSIONS: 1. Appears to be a 2.7 cm mass at the inferior anterior pole right kidney. This is changing from the comparison study. Additional workup with ultrasound is recommended. MRI could be performed for addit ional evaluation. A Gilliam level critical message alert has been initiated for Jerel Cabello MD via the [employer] Critical Results System on 05/23/2021 4:11 PM. This message alert has been sent to Jerel Cabello MD via the preferences provided by the clinician for the receipt of Radiology Critical Findings. [employer] e ID [id number].
== END | disposition home or self-care (01) ==
LOC: RADCTMAIN 09:34
PROVIDERS: ATTEND Urology
DX: N28.89 Other specified disorders of kidney and ureter (principal)
CPT/HCPCS: 82565; 84520; 74160; 36415; Q9967

== ENCOUNTER → 2021-06-22 | Outpatient (CLI) | payer MEDICARE, BC ==
--- NOTE | 2021-06-22 08:34 | US ---
EXAMINATION TYPE: US kidneys/renal and bladder DATE OF EXAM: 06/22/2021 COMPARISON: 05/23/21 CT scan. CLINICAL HISTORY: D41.01 Renal mass right. EXAM MEASUREMENTS: Right Kidney: 12.9x4.5x5.5 cm Left Kidney: 12.3x6.3x6.3 cm Right Kidney: Inf/Anterior mass 2.3x2.2x2.3cm Left Kidney: Cysts Inf- 1.7x1.0x1.2cm Mid-1.1x1.2x1.4cm Bladder: WNL Bilateral Jets seen: No No hydronephrosis or nephrolithiasis. IMPRESSION: There is a 2.3 cm mass right kidney appears solid. Renal cell carcinoma in the differential diagnosis . Corresponds to the CT scan abnormality.
== END | disposition home or self-care (01) ==
LOC: RADUSWWP 07:31
PROVIDERS: ATTEND Urology
DX: N28.89 Other specified disorders of kidney and ureter (principal); N28.1 Cyst of kidney, acquired
CPT/HCPCS: 76770

== ENCOUNTER → 2021-12-03 | Outpatient (CLI) | payer MEDICARE ==
--- NOTE | 2021-12-03 18:31 | US ---
EXAMINATION TYPE: US kidneys/renal and bladder DATE OF EXAM: 12/03/2021 COMPARISON: 06/22/2021, 05/23/2021, 11/21/2020 CLINICAL HISTORY: 76-year-old female D41.01 RENAL MASS RT. TECHNIQUE: Multiple sonographic images of the kidneys and bladder are obtained. FINDINGS: EXAM MEASUREMENTS: Right Kidney: 12.4 x 4.5 x 5.1 cm Left Kidney: 12.1 x 5.3 x 5.5 cm Right Kidney: lower pole solid isoechoic mass measures 2.3 x 2.2 x 2.3 cm. This is in comparison to 2.3 cm on 06/22/2021, 2.7 cm on 05/23/2021, and 2.4 cm on 11/21/2020. No hydronephrosis. Left Kidney: cystic area measures 1.5 x 1.3 x 1.9 cm. No hydronephrosis. Bladder: Underdistention limits its evaluation. Bilateral Jets seen: Yes Incidental increased echogenicity of the liver. IMPRESSION: 1. A solid 2.3 cm cortical mass from the lower pole of the right kidney is relatively unchanged back to 11/21/2020. An indolent RCC remains to be excluded. Continued surveillance recommended. 2. Incidental moderate hepatic steatosis.
== END | disposition home or self-care (01) ==
LOC: RADUSWWP 14:45
PROVIDERS: ATTEND Urology
DX: N28.89 Other specified disorders of kidney and ureter (principal); K76.0 Fatty (change of) liver, not elsewhere classified
CPT/HCPCS: 76770

== ENCOUNTER → 2022-05-16 | Outpatient (CLI) | payer MEDICARE ==
--- NOTE | 2022-05-16 11:59 | US ---
EXAMINATION TYPE: US kidneys/renal and bladder DATE OF EXAM: 05/16/2022 COMPARISON: Prior ultrasound December 03, 2021 and older studies through CT November 21, 2020 CLINICAL HISTORY: D41.01 Renal Mass RT. Follow up right renal lesion. EXAM MEASUREMENTS: Right Kidney: 11.8 x 5.0 x 4.8 cm Left Kidney: 12.2 x 4.8 x 4.8 cm Right Kidney: Lower medial isoechoic to cortex lesion = 2.3 x 2.1 x 2.2 cm Left Kidney: Medial inferior anechoic lesion in renal sinus= 1.9 x 1.21 x 1.0 cm Bladder: distended, anechoic Bilateral Jets not seen Cortical thinning redemonstrated in the right kidney. There is persistent ball-shaped 2.3 cm round ma ss lower pole level again seen. No hydronephrosis present bilaterally. Incidental 1.9 cm benign-appea ring overall thin-walled cyst in the left kidney lower pole level redemonstrated. Bladder adequately distended. IMPRESSION: Stable 2.3 cm round mass worrisome for neoplasm lower pole of the right kidney.
== END | disposition home or self-care (01) ==
LOC: RADUSWWP 09:24
PROVIDERS: ATTEND Urology
DX: D41.01 Neoplasm of uncertain behavior of right kidney (principal)
CPT/HCPCS: 76770

== ENCOUNTER → 2022-12-30 | Outpatient (CLI) | payer MEDICARE ==
--- NOTE | 2022-12-30 11:09 | US ---
EXAMINATION TYPE: US kidneys/renal and bladder DATE OF EXAM: 12/30/2022 COMPARISON: NONE CLINICAL INDICATION: Female, 77 years old with history of D41.01 RENAL MASS; Follow up Right renal ma ss EXAM MEASUREMENTS: Right Kidney: 12.0 x 4.6 x 4.7 cm Left Kidney: 12.8 x 5.8 x 4.7 cm Right Kidney: isoechoic lesion lower pole = 2.2 x 2.0 x 2.2cm Left Kidney: anechoic area lower pole = 1.7 x 0.8 x 1.3cm Bladder: appears wnl Bilateral Jets seen: no There is no evidence for hydronephrosis at this point in time. No nephrolithiasis is seen. The urin osito bladder is anechoic. Bilateral ureteral jets are seen. IMPRESSION: 1. Stable solid isoechoic mass lower pole right kidney with prior measurement of 2.3 x 2.2 x 2.1 cm v ersus 2.2 x 2.0 x 2.2 cm currently. 2. Simple cyst lower pole left kidney.
== END | disposition home or self-care (01) ==
LOC: RADUSWWP 10:21
PROVIDERS: ATTEND Urology
DX: D41.01 Neoplasm of uncertain behavior of right kidney (principal); N28.89 Other specified disorders of kidney and ureter; N28.1 Cyst of kidney, acquired
CPT/HCPCS: 76770

== ENCOUNTER → 2023-07-30 | Outpatient (CLI) | payer MEDICARE ==
--- NOTE | 2023-07-30 11:45 | US ---
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 Prior measurements 2.3 x 2.2 x 2.1 Left Kidney: Anechoic area lower pole 2.1 x .8 x 1.3 m. Bladder: anechoic Bilateral Jets seen: No IMPRESSION: 1. Hypodense mass inferior pole right kidney. This may be minimally larger than the comparison.
== END | disposition home or self-care (01) ==
LOC: RADUSWWP 09:21
PROVIDERS: ATTEND Urology
DX: D41.01 Neoplasm of uncertain behavior of right kidney (principal)
CPT/HCPCS: 76770

== ENCOUNTER → 2024-07-28 | Outpatient (CLI) | payer MEDICARE ==
--- NOTE | 2024-07-28 08:51 | US ---
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 Bladder: WNL Bilateral Jets seen: No Normal Post Void Residual: NA There is no evidence for hydronephrosis at this point in time. No nephrolithiasis is seen. The urina ry bladder is anechoic. IMPRESSION: No evidence for obstructive uropathy. Lower pole right kidney lesion measuring up to 2.8 cm which is similar size 05/23/2021 [facility], , 07/28/2024 8:49 AM
== END | disposition home or self-care (01) ==
LOC: RADUSWWP 08:13
PROVIDERS: ATTEND Urology
DX: D41.01 Neoplasm of uncertain behavior of right kidney (principal); E11.9 Type 2 diabetes mellitus without complications; N28.9 Disorder of kidney and ureter, unspecified
CPT/HCPCS: 76770